=== PATIENT | female | born 1975 | race American Indian/Alaskan Native ===

== ENCOUNTER 2017-01-16 08:31 | Emergency (ER) | payer MEDICAID, OTHER ==
[2017-01-16 08:31] VITALS: BMI 81.3
[2017-01-16 08:47] VITALS: RESP 18
--- NOTE | 2017-01-16 09:20 | ED PDOC ---
Arrival/HPI - General Historian: Patient - General Chief Complaint: Flu-like Symptoms Time Seen by Provider: 01/16/17 09:09 - History of Present Illness Narrative History of Present Illness (Text): 01/16/17 09:17 41yo female with history of hypertension present with complaint of nonproductive cough, chills, headache x 3days. States she noticed hematuria at 030am this morning. Did not get the flu vaccine. denies fever, but had low grade temp in the triage. Denies dysuria, urinary frequency, nausea, vomiting, abdominal pain, sick contact, travel. (Robyn Copeland A) Past Medical History - Provider Review Nursing Documentation Reviewed: Yes - Infectious Disease Hx of Infectious Diseases: None - Cardiac Hx Hypertension: Yes - Pulmonary Hx Respiratory Disorders: No - Neurological Hx Neurological Disorder: No - HEENT Hx HEENT Disorder: No - Renal Hx Renal Disorder: No - Endocrine/Metabolic Hx Endocrine Disorders: No - Hematological/Oncological Hx Blood Disorders: No - Integumentary Hx Dermatological Disorder: No - Musculoskeletal/Rheumatological Other/Comment: BUNION SURGERY - Gastrointestinal Hx Gastrointestinal Disorders: No - Genitourinary/Gynecological Hx Genitourinary Disorders: No Other/Comment: ECTOPIC - Psychiatric Hx Psychophysiologic Disorder: No Hx Substance Use: No - Surgical History Other/Comment: 2 foot surgeries one year ago - Anesthesia Hx Anesthesia: Yes Hx Anesthesia Reactions: No Hx Malignant Hyperthermia: No Family/Social History - Physician Review Nursing Documentation Reviewed: Yes Family/Social History: Unknown Family HX Smoking Status: Former Smoker Hx Alcohol Use: No Hx Substance Use: No Allergies/Home Meds Allergies/Adverse Reactions: Allergies No Known Allergies Allergy (Verified 08/15/16 15:18) Home Medications: Home Meds Medication Instructions Recorded Confirmed Amlodipine/Valsartan [Amlodipine 160 tab PO DAILY 04/05/16 01/16/17 Besylate-Valsartan 5 mg-160 mg] Review of Systems - Physician Review All systems were reviewed & negative as marked: Yes - Review of Systems Constitutional: Fevers Eyes: Normal ENT: Normal Respiratory: Cough. absent: SOB, Sputum, Wheezing Cardiovascular: Normal Gastrointestinal: Normal Genitourinary Female: Hematuria. absent: Dysuria, Frequency Musculoskeletal: Normal Skin: Normal Neurological: Normal Endocrine: Normal Hemo/Lymphatic: Normal Psychiatric: Normal Physical Exam Vital Signs Reviewed: Yes Temperature: Febrile Blood Pressure: Normal Pulse: Regular Respiratory Rate: Normal Appearance: Positive for: Well-Appearing, Non-Toxic, Comfortable Pain Distress: None Mental Status: Positive for: Alert and Oriented X 3 - Systems Exam Head: Present: Atraumatic, Normocephalic Pupils: Present: PERRL Extroacular Muscles: Present: EOMI Conjunctiva: Present: Normal Mouth: Present: Moist Mucous Membranes Neck: Present: Normal Range of Motion Respiratory/Chest: Present: Clear to Auscultation, Good Air Exchange. No: Respiratory Distress, Accessory Muscle Use, Wheezes, Decreased Breath Sounds, Rales, Retracting, Rhonchi, Tachypneic Cardiovascular: Present: Regular Rate and Rhythm, Normal S1, S2. No: Murmurs Abdomen: Present: Normal Bowel Sounds. No: Tenderness, Distention, Peritoneal Signs, Rebound, Guarding, McBurney's Point Tender, Rovsing's Sign Present Back: Present: Normal Inspection. No: CVA Tenderness Upper Extremity: Present: Normal Inspection. No: Cyanosis, Edema Lower Extremity: Present: Normal Inspection. No: Edema Neurological: Present: GCS=15, CN II-XII Intact, Speech Normal Skin: Present: Warm, Dry, Normal Color. No: Rashes Psychiatric: Present: Alert, Oriented x 3, Normal Insight, Normal Concentration Vital Signs Temp Pulse Resp BP Pulse Ox 01/16/17 10:51 99.1 F 61 18 135/79 99 01/16/17 09:50 100.5 F H 59 L 18 138/85 99 01/16/17 09:46 100.5 F H 01/16/17 08:42 100.5 F H 59 L 18 138/85 98 Medical Decision Making ED Course and Treatment: I was available for consultation during PA evaluation. The chart was reviewed by me, and I agree with disposition. The documented history was done by the physician manager regional sales. The documented physical exam was done by the physician manager regional sales. The documented procedures were done by the physician manager regional sales. (Adria Becerra) 01/16/17 14:23 PT in ED for stated history. Chest xray was negative and rapid Flu was negative. Pt had low grade temp in ED. She was comfortable and in no distress. She was tx with Zpack for bronchitis and antitussive given. Hematuria was noted in the UA. No leukocyte/nitrite. Result was DW the pt. She denied urinary symptoms and exam was benign. she was Referred to her PMD/Urologist. TRT ED for any new or worsening symptoms. (Dinorah,Robyn A) - Lab Interpretations Lab Results: Lab Results 01/16/17 10:14: Urine Color Light yellow, Urine Appearance Sl cloudy, Urine pH 6.5, Ur Specific [place] 1.010, Urine Protein 30 H, Urine Glucose (UA) Negative , Urine Ketones Negative, Urine Blood Large H, Urine Nitrate Negative, Urine Bilirubin Negative, Urine Urobilinogen 0.2, Ur Leukocyte Esterase Negative, Urine RBC 20 - 25, Urine WBC 0 - 2, Ur Epithelial Cells 0 - 2, Urine Bacteria Few 01/16/17 09:30: Influenza Typ A,B (EIA) Negative for flu a/b - RAD Interpretation Radiology Orders: 01/16/17 09:09 CHEST TWO VIEWS (PA/LAT) [RAD] Stat - Medication Orders Current Medication Orders: Discontinued Medications Acetaminophen (Tylenol 325mg Tab) 650 mg PO STAT STA Stop: 01/16/17 09:37 Last Admin: 01/16/17 09:46 Dose: 650 MG MAR Pain/Vitals Document 01/16/17 09:46 SE (Rec: 01/16/17 09:47 SE [id number]) Pain Reassessment Is This A Pain ReAssessment? No Sleep Is patient sleeping during reassessment? No Presence of Pain Presence of Pain No Vitals Temperature (97.6 F-99.6 F) 100.5 F Temperature Source Oral Azithromycin (Zithromax) 500 mg PO STAT STA PRN Reason: Protocol Stop: 01/16/17 11:21 Last Admin: 01/16/17 11:28 Dose: 500 MG Benzonatate (Tessalon Perles) 100 mg PO ONCE STA Stop: 01/16/17 11:21 Last Admin: 01/16/17 11:28 Dose: 100 MG Disposition/Present on Arrival - Present on Arrival Any Indicators Present on Arrival: No History of DVT/PE: No History of Uncontrolled Diabetes: No Urinary Catheter: No History of Decub. Ulcer: No History Surgical Site Infection Following: None - Disposition Have Diagnosis and Disposition been Completed?: Yes Disposition Time: 11:25 Patient Plan: Discharge - Disposition Diagnosis: Headache, Bronchitis, Hematuria Disposition: HOME/ ROUTINE Condition: STABLE Discharge Instructions (ExitCare): Acute Bronchitis (ED) Additional Instructions: Take medication as directed Follow up with your Doctor/Urologist Return to ED for any new or worsening symptoms Prescriptions: Promethazine [Phenergan Oral Syrup] 6.25 mg PO Q6 #100 dose Benzonatate [Tessalon Perles] 100 mg PO TID #30 sgl Azithromycin [Zithromax] 250 mg PO DAILY #4 tab Referrals: Margret Cade MD [Primary Care Provider] - Follow up with primary Jon Castillo MD [Staff Provider] - Follow up with primary Forms: WORK NOTE
[2017-01-16 09:50] VITALS: O2SAT 99
[2017-01-16 10:18] LABS: PH,URINE 6.5 (4.7-8.0); URINE BILIRUBIN NEGATIVE (NEGATIVE); URINE BLOOD LARGE (NEGATIVE); URINE GLUCOSE (UA) NEGATIVE (NEGATIVE); URINE KETONE NEGATIVE (NEGATIVE); URINE LEUKOCYTE ESTERASE NEGATIVE Leu/uL (NEGATIVE); URINE PROTEIN 30 mg/dL (<30 mg/dL); URINE UROBILINOGEN 0.2 E.U./dL (<1 E.U./dL)
[2017-01-16 10:21] LABS: URINE APPEARANCE SL CLOUDY (CLEAR); URINE COLOR LIGHT YELLOW (YELLOW)
[2017-01-16 10:40] LABS: URINE RBC 20 - 25 /hpf (0-2); URINE WBC 0 - 2 /hpf (0-6)
[2017-01-16 10:41] LABS: URINE BACTERIA FEW (NEG); URINE EPITHELIAL CELLS 0 - 2 /hpf (0-5)
[2017-01-16 10:51] VITALS: BP 135/79; PULSE 61; TEMP 99.1
--- NOTE | 2017-01-16 11:03 | RAD ---
HISTORY: cough COMPARISON: 04/05/2016 TECHNIQUE: Chest PA and lateral FINDINGS: LUNGS: No active pulmonary disease. PLEURA: No significant pleural effusion identified. No pneumothorax apparent. CARDIOVASCULAR: Normal. OSSEOUS STRUCTURES: No significant abnormalities. VISUALIZED UPPER ABDOMEN: Normal. OTHER FINDINGS: None. IMPRESSION: No active disease.
== END 2017-01-16 12:03 | disposition home or self-care (01) ==
LOC: ED 08:31
DX: J20.9 Acute bronchitis, unspecified (principal); R31.9 Hematuria, unspecified; R51 Headache; Z87.891 Personal history of nicotine dependence

== ENCOUNTER 2017-10-06 13:13 | Emergency (ER) | payer SELFPAY ==
[2017-10-06 13:14] VITALS: BMI 81.3
[2017-10-06 14:10] VITALS: BP 123/74; PULSE 75; RESP 18; TEMP 97.8; O2SAT 98
--- NOTE | 2017-10-06 14:15 | ED PDOC ---
Arrival/HPI - General Chief Complaint: GI Problem Time Seen by Provider: 10/06/17 13:43 Historian: Patient - History of Present Illness Narrative History of Present Illness (Text): 10/06/17 14:12 A 41 year old female, whose past medical history includes hypertension, presents to the emergency department complaining of nausea and dizziness. Patient reports she became dizzy and felt like passing out. Later began experiencing some abdominal pain with associated nausea. Patient believes it may be due to the cold weather but is uncertain. Currently is not experiencing any symptoms and has no complaints. Blood sugar reading is 115. No PMD Past Medical History - Provider Review Nursing Documentation Reviewed: Yes - Infectious Disease Hx of Infectious Diseases: None - Cardiac Hx Cardiac Disorders: Yes Hx Hypertension: Yes - Pulmonary Hx Respiratory Disorders: No - Neurological Hx Neurological Disorder: No - HEENT Hx HEENT Disorder: No - Renal Hx Renal Disorder: No - Endocrine/Metabolic Hx Endocrine Disorders: No - Hematological/Oncological Hx Blood Disorders: No - Integumentary Hx Dermatological Disorder: No - Musculoskeletal/Rheumatological Hx Musculoskeletal Disorders: Yes Other/Comment: BUNION SURGERY - Gastrointestinal Hx Gastrointestinal Disorders: No - Genitourinary/Gynecological Hx Genitourinary Disorders: No Other/Comment: ECTOPIC - Psychiatric Hx Psychophysiologic Disorder: No Hx Substance Use: No - Surgical History Other/Comment: 2 foot surgeries one year ago - Anesthesia Hx Anesthesia: Yes Hx Anesthesia Reactions: No Hx Malignant Hyperthermia: No Family/Social History - Physician Review Nursing Documentation Reviewed: Yes Family/Social History: No Known Family HX Smoking Status: Former Smoker Hx Alcohol Use: No Hx Substance Use: No Allergies/Home Meds Allergies/Adverse Reactions: Allergies No Known Allergies Allergy (Verified 10/06/17 14:05) Home Medications: Home Meds Medication Instructions Recorded Confirmed Amlodipine/Valsartan [Amlodipine 160 tab PO DAILY 04/05/16 10/06/17 Besylate-Valsartan 5 mg-160 mg] Review of Systems - Review of Systems Constitutional: Other (patient currently experiences no symptoms) Physical Exam Vital Signs Reviewed: Yes Vital Signs Temp Pulse Resp BP Pulse Ox 10/06/17 14:10 97.8 F 75 18 123/74 98 Temperature: Afebrile Blood Pressure: Normal Pulse: Regular Respiratory Rate: Normal Appearance: Positive for: Well-Appearing Pain Distress: None Mental Status: Positive for: Alert and Oriented X 3 Finger Stick Blood Glucose: 115 - Systems Exam Head: Present: Atraumatic, Normocephalic Pupils: Present: PERRL Extroacular Muscles: Present: EOMI Conjunctiva: Present: Normal Mouth: Present: Moist Mucous Membranes Neck: Present: Normal Range of Motion Respiratory/Chest: Present: Clear to Auscultation, Good Air Exchange. No: Respiratory Distress, Accessory Muscle Use Cardiovascular: Present: Regular Rate and Rhythm, Normal S1, S2. No: Murmurs Abdomen: Present: Normal Bowel Sounds. No: Tenderness, Distention, Peritoneal Signs Back: Present: Normal Inspection Upper Extremity: Present: Normal Inspection. No: Cyanosis, Edema Lower Extremity: Present: Normal Inspection. No: Edema Neurological: Present: GCS=15, CN II-XII Intact, Speech Normal Skin: Present: Warm, Dry, Normal Color. No: Rashes Psychiatric: Present: Alert, Oriented x 3, Normal Insight, Normal Concentration Medical Decision Making ED Course and Treatment: 10/06/17 14:13 Impression: 41 year old female whom had abdominal pain, dizziness, and nausea, but currently experiences no symptoms. No acute findings on physical exam. Plan: -- Reassess and disposition Prior Visits: Notes and results from previous visits were reviewed. Patient was last seen in the emergency department on 01/16/2017 for nonproductive cough, chills, and headache. Patient was discharged home. Progress Notes: - Scribe Statement The provider has reviewed the documentation as recorded by the Omer Lopez Provider Scribe Attestation: All medical record entries made by the Scribcesar were at my direction and personally dictated by me. I have reviewed the chart and agree that the record accurately reflects my personal performance of the history, physical exam, medical decision making, and the department course for this patient. I have also personally directed, reviewed, and agree with the discharge instructions and disposition. Disposition/Present on Arrival - Present on Arrival Any Indicators Present on Arrival: No History of DVT/PE: No History of Uncontrolled Diabetes: No Urinary Catheter: No History of Decub. Ulcer: No History Surgical Site Infection Following: None - Disposition Have Diagnosis and Disposition been Completed?: Yes Diagnosis: Fainting spell Disposition: HOME/ ROUTINE Disposition Time: 14:45 Patient Plan: Discharge Patient Problems: Current Active Problems Problem Status Onset Fainting spell Acute Condition: IMPROVED Discharge Instructions (ExitCare): Syncope (ED) Forms: [employer] ([place])
== END 2017-10-06 14:50 | disposition home or self-care (01) ==
LOC: ED 13:13
DX: R55 Syncope and collapse (principal); I10 Essential (primary) hypertension; Z87.891 Personal history of nicotine dependence